=== PATIENT | male | born 1985 | race Hispanic/Latino ===

== ENCOUNTER 2020-12-10 18:28 | Inpatient (IN) | payer MEDICARE, MEDICAID ==
[2020-12-10] MEDS ORDERED: Morphine 4 MG/ML VIAL ONE ×2 (19:33→22:36)
[2020-12-10 19:52] LABS: ALT (SGPT) 21 U/L (8-55); AST (SGOT) 21 U/L (5-34); Alkaline Phosphatase 45 U/L (40-110); Anion Gap 20 mmol/L (10-20); BUN (Urea Nitrogen) 63 mg/dL (8.9-20.6); Bilirubin, Total 0.4 mg/dL (0.2-1.2); Calc. Creatinine Clearance 0 mL/min (70-130); Calcium 9.8 mg/dL (7.8-10.44); Carbon Dioxide 27 mmol/L (22-29); Chloride 100 mmol/L (98-107); Globulin 2.6 g/dL (2.4-3.5); Glucose 76 mg/dL (70-105); Protein, Total 6.6 g/dL (6.0-8.3); Sodium 142 mmol/L (136-145)
[2020-12-10 20:06] LABS: #Eosinphils 0.1 10x3/uL (0.0-0.5); #Monocytes 0.6 10x3/uL (0.0-1.1); %Basophils 0.5 % (0.0-2.0); %Eosinophils 2.5 % (0.0-6.0); %Lymphocytes 20.4 % (18.0-47.0); %Monocytes 15.3 % (0.0-10.0); Hemoglobin 12.8 g/dL (13.5-17.5); Mean Corpuscular HGB CONC 31.8 g/dL (32.0-36.0); Mean Corpuscular Hemoglobin 28.6 pg (27.0-33.0); Mean Platelet Volume 8.8 fl (7.4-10.4); RBC Distribution Width 15.3 % (11.5-14.5); Red Blood Cell (RBC) Count 4.48 10x6/uL (4.32-5.72); White Blood Cell (WBC) Count 3.7 10x3/uL (3.5-10.5)
[2020-12-10 20:07] LABS: Platelet Count 154 10x3/uL (150-450)
[2020-12-10] MEDS ORDERED: hydrALAZINE 20 MG/ML VIAL ONE (22:37)
[2020-12-10] MEDS ORDERED: Gentamicin 80 MG/100 ML BAG ONE (23:59)
[2020-12-11] MEDS ORDERED: Acetaminophen 325 MG TAB PO PRN (00:44)
[2020-12-11] MEDS ORDERED: HYDROcodone/Acetaminophen 5/325 mg Tablet PO PRN ×2 (00:44→12:43)
[2020-12-11] MEDS ORDERED: Calcium Carbonate 500 MG ChewTAB PO PRN (00:44)
[2020-12-11] MEDS ORDERED: Senokot S 8.6-50 MG TAB PO PRN (00:44)
[2020-12-11] MEDS ORDERED: Guaifenesin DM 100-10/5 ML UDCUP PO PRN (00:44)
[2020-12-11] MEDS ORDERED: HYDROmorphone 0.5 MG/0.5 ML SYRINGE SLOW IVP PRN (00:49)
[2020-12-11] MEDS ORDERED: Labetalol HCl 100 MG/20 ML VIAL SLOW IVP PRN (00:51)
[2020-12-11] MEDS ORDERED: Nitroglycerin 2% Ointment 1 INCH/1 GM Packet TOP SCH (01:00)
[2020-12-11] MEDS ORDERED: Nitroglycerin 2% Ointment 1 INCH/1 GM Packet ONE (03:01)
[2020-12-11] MEDS ORDERED: HYDROcodone/Acetaminophen 5/325 mg Tablet ONE (03:02)
[2020-12-11 06:01] LABS: #Eosinphils 0.1 10x3/uL (0.0-0.5); #Monocytes 0.5 10x3/uL (0.0-1.1); %Basophils 1.1 % (0.0-2.0); %Eosinophils 3.1 % (0.0-6.0); %Lymphocytes 19.7 % (18.0-47.0); %Monocytes 14.1 % (0.0-10.0); Hemoglobin 12.9 g/dL (13.5-17.5); Mean Corpuscular HGB CONC 32.1 g/dL (32.0-36.0); Mean Corpuscular Hemoglobin 29.5 pg (27.0-33.0); Mean Platelet Volume 8.6 fl (7.4-10.4); Platelet Count 133 10x3/uL (150-450); RBC Distribution Width 15.1 % (11.5-14.5); Red Blood Cell (RBC) Count 4.37 10x6/uL (4.32-5.72); White Blood Cell (WBC) Count 3.6 10x3/uL (3.5-10.5)
[2020-12-11 06:02] LABS: #Neutrophils 2.2 10x3/uL (1.5-8.4)
[2020-12-11 06:12] LABS: Anion Gap 20 mmol/L (10-20); BUN (Urea Nitrogen) 67 mg/dL (8.9-20.6); Calc. Creatinine Clearance 0 mL/min (70-130); Calcium 8.6 mg/dL (7.8-10.44); Carbon Dioxide 24 mmol/L (22-29); Chloride 102 mmol/L (98-107); Glucose 99 mg/dL (70-105); Potassium 6.2 mmol/L (3.5-5.1); Sodium 140 mmol/L (136-145)
[2020-12-11] MEDS ORDERED: Cefepime 1 GM in Sodium Chloride 0.9% 100 ML IVPB SCH (07:30)
[2020-12-11] MEDS ORDERED: HYDROcodone/Acetaminophen 10/325 mg Tablet ONE (08:00)
[2020-12-11] MEDS: Minoxidil 2.5 MG TAB PO SCH ×2 (08:59→21:20)
[2020-12-11] MEDS: Sevelamer Carbonate 800 MG TAB PO SCH ×3 (08:59→16:20)
[2020-12-11] MEDS: Hyoscyamine Sulfate SL 0.125 mg Tablet PO SCH ×3 (09:00→19:38)
[2020-12-11] MEDS ORDERED: Vancomycin 1 GM in Premix Bag 1 BAG IVPB SCH ×2 (09:00→10:45)
[2020-12-11] MEDS ORDERED: Metoprolol Tartrate 50 MG TAB ONE (09:43)
[2020-12-11] MEDS ORDERED: hydrALAZINE 25 MG TAB ONE (09:44)
[2020-12-11] MEDS ORDERED: HYDROmorphone 0.5 MG/0.5 ML SYRINGE ONE (09:44)
[2020-12-11] MEDS: Metoprolol Tartrate 50 MG TAB PO SCH ×2 (09:54→21:20)
[2020-12-11] MEDS: hydrALAZINE 25 MG TAB PO SCH ×3 (09:54→21:19)
[2020-12-11] MEDS ORDERED: HOLD VANCOMYCIN FOR LEVEL >20 FS SCH (10:45)
[2020-12-11] MEDS ORDERED: Vancomycin HCl 750 MG in Sodium Chloride 0.9% 250 ML 250 ML IVPB SCH ×2 (10:45→16:00)
[2020-12-11] MEDS ORDERED: Vancomycin HCl 500 MG in Sodium Chloride 0.9% 100 ML IVPB SCH (10:45)
[2020-12-11] MEDS ORDERED: Vancomycin HCl 1.25 GM in Sodium Chloride 0.9% 250 ML 250 ML IVPB SCH (10:45)
[2020-12-11] MEDS: hydrALAZINE 20 MG/ML VIAL SLOW IVP PRN (11:01)
[2020-12-11] MEDS: Heparin 5,000 UNITS/ML VIAL SC SCH ×3 (11:02→21:24)
[2020-12-11] MEDS: NIFEdipine XL 30 MG TAB PO SCH (11:02)
[2020-12-11 11:17] LABS: Vancomycin, Random 13.9 ug/mL (See Comment)
[2020-12-11] MEDS: Diazepam 5 MG TAB PO PRN ×2 (11:17→16:50)
[2020-12-11 13:12] LABS: SARS-CoV-2 PCR by NAA Not Detected (NotDetected)
[2020-12-11] MEDS ORDERED: Heparin 10,000 UNITS/ 10 ML VIAL SLOW IVP SCH (13:15)
[2020-12-11] MEDS: HYDROmorphone 0.5 MG/0.5 ML SYRINGE SLOW IVP PRN (15:48)
[2020-12-11] MEDS: Cefepime 0.5 GM in Sodium Chloride 0.9% 100 ML IVPB SCH (16:19)
[2020-12-11 17:36] VITALS: BMI 26.6
[2020-12-11] MEDS: diphenhydrAMINE 25 MG CAP PO PRN (17:54)
[2020-12-11] MEDS: Famotidine 20 MG TAB PO SCH (21:19)
[2020-12-11] MEDS: Senokot S 8.6-50 MG TAB PO SCH (21:20)
[2020-12-11] MEDS: HYDROcodone/Acetaminophen 10/325 mg Tablet PO PRN (21:46)
[2020-12-12] MEDS: HYDROcodone/Acetaminophen 10/325 mg Tablet PO PRN ×3 (01:38→21:28)
[2020-12-12] MEDS: diphenhydrAMINE 25 MG CAP PO PRN ×2 (01:39→13:30)
[2020-12-12] MEDS: Hyoscyamine Sulfate SL 0.125 mg Tablet PO SCH ×4 (01:57→19:47)
[2020-12-12] MEDS: HYDROmorphone 0.5 MG/0.5 ML SYRINGE SLOW IVP PRN ×2 (04:20→17:29)
[2020-12-12 07:26] LABS: Vancomycin, Random 13.6 ug/mL (See Comment)
[2020-12-12 07:27] LABS: Anion Gap 19 mmol/L (10-20); BUN (Urea Nitrogen) 47 mg/dL (8.9-20.6); Calc. Creatinine Clearance 11 mL/min (70-130); Calcium 8.6 mg/dL (7.8-10.44); Carbon Dioxide 25 mmol/L (22-29); Chloride 100 mmol/L (98-107); Glucose 77 mg/dL (70-105); Potassium 5.3 mmol/L (3.5-5.1); Sodium 139 mmol/L (136-145)
[2020-12-12 07:28] LABS: #Eosinphils 0.1 10x3/uL (0.0-0.5); #Monocytes 0.4 10x3/uL (0.0-1.1); #Neutrophils 2.1 10x3/uL (1.5-8.4); %Basophils 1.2 % (0.0-2.0); %Eosinophils 3.9 % (0.0-6.0); %Lymphocytes 19.3 % (18.0-47.0); %Monocytes 12.2 % (0.0-10.0); %Neutrophils 63.1 % (40.0-75.0); Hemoglobin 13.6 g/dL (13.5-17.5); Mean Corpuscular HGB CONC 31.3 g/dL (32.0-36.0); Mean Corpuscular Hemoglobin 28.6 pg (27.0-33.0); Mean Corpuscular Volume 91.2 fl (81.2-95.1); Mean Platelet Volume 8.9 fl (7.4-10.4); Platelet Count 135 10x3/uL (150-450); RBC Distribution Width 14.8 % (11.5-14.5); Red Blood Cell (RBC) Count 4.76 10x6/uL (4.32-5.72); White Blood Cell (WBC) Count 3.4 10x3/uL (3.5-10.5)
[2020-12-12] MEDS ORDERED: GUAIFENESIN SF SOLN 200 MG/10 ML UDCUP PO PRN (07:50)
[2020-12-12] MEDS ORDERED: Ondansetron PF 4 MG/2 ML Vial IVP PRN (07:50)
[2020-12-12] MEDS ORDERED: Zolpidem Tartrate 5 MG TAB PO PRN (07:50)
[2020-12-12] MEDS ORDERED: Cepastat Lozenges 1 LOZ PO PRN (07:50)
[2020-12-12] MEDS ORDERED: Benzonatate 100 MG CAP PO PRN (07:50)
[2020-12-12] MEDS ORDERED: Loperamide HCl 2 MG CAP PO PRN (07:50)
[2020-12-12] MEDS ORDERED: Sodium Chloride 0.65% Nasal 44 ML BOT EA NARE PRN (07:50)
[2020-12-12] MEDS ORDERED: Ondansetron ODT 4 MG TAB PO PRN (07:50)
[2020-12-12] MEDS ORDERED: Cefepime 0.5 GM in Sodium Chloride 0.9% 100 ML IVPB SCH (09:00)
[2020-12-12] MEDS: Sevelamer Carbonate 800 MG TAB PO SCH ×3 (09:03→17:30)
[2020-12-12] MEDS: hydrALAZINE 25 MG TAB PO SCH ×3 (09:04→21:21)
[2020-12-12] MEDS: Diazepam 5 MG TAB PO PRN ×2 (09:04→21:20)
[2020-12-12] MEDS: Metoprolol Tartrate 50 MG TAB PO SCH ×2 (09:04→21:21)
[2020-12-12] MEDS: Minoxidil 2.5 MG TAB PO SCH ×2 (09:04→21:58)
[2020-12-12] MEDS: NIFEdipine XL 30 MG TAB PO SCH (09:05)
[2020-12-12] MEDS: Senokot S 8.6-50 MG TAB PO SCH ×2 (09:05→21:21)
[2020-12-12] MEDS: Heparin 5,000 UNITS/ML VIAL SC SCH ×3 (09:05→21:22)
[2020-12-12] MEDS: Cefepime 0.5 GM in Sodium Chloride 0.9% 100 ML IVPB SCH (16:51)
[2020-12-12] MEDS ORDERED: Vancomycin HCl 750 MG in Sodium Chloride 0.9% 250 ML 250 ML IVPB SCH (17:00)
[2020-12-12] MEDS ORDERED: Sodium Chloride 0.9% 250 ML 250 ML ONE (18:32)
[2020-12-12] MEDS: Famotidine 20 MG TAB PO SCH (21:22)
[2020-12-13] MEDS: Hyoscyamine Sulfate SL 0.125 mg Tablet PO SCH ×4 (00:45→19:01)
[2020-12-13] MEDS: HYDROmorphone 0.5 MG/0.5 ML SYRINGE SLOW IVP PRN ×2 (05:37→17:57)
[2020-12-13] MEDS: diphenhydrAMINE 25 MG CAP PO PRN ×2 (05:49→12:59)
[2020-12-13 07:11] LABS: #Eosinphils 0.1 10x3/uL (0.0-0.5); #Monocytes 0.4 10x3/uL (0.0-1.1); %Lymphocytes 22.5 % (18.0-47.0); %Monocytes 13.4 % (0.0-10.0); Hemoglobin 13.7 g/dL (13.5-17.5); Mean Corpuscular HGB CONC 31.2 g/dL (32.0-36.0); Mean Corpuscular Hemoglobin 28.6 pg (27.0-33.0); Mean Corpuscular Volume 91.6 fl (81.2-95.1); Mean Platelet Volume 9.4 fl (7.4-10.4); Platelet Count 143 10x3/uL (150-450); RBC Distribution Width 14.6 % (11.5-14.5); Red Blood Cell (RBC) Count 4.79 10x6/uL (4.32-5.72)
[2020-12-13 07:19] LABS: #Neutrophils 1.8 10x3/uL (1.5-8.4); %Neutrophils 59.1 % (40.0-75.0)
[2020-12-13 07:36] LABS: ALT (SGPT) 20 U/L (8-55); AST (SGOT) 19 U/L (5-34); Albumin 3.7 g/dL (3.5-5.0); Alkaline Phosphatase 43 U/L (40-110); Anion Gap 21 mmol/L (10-20); BUN (Urea Nitrogen) 44 mg/dL (8.9-20.6); Bilirubin, Total 0.4 mg/dL (0.2-1.2); Calc. Creatinine Clearance 12 mL/min (70-130); Calcium 8.7 mg/dL (7.8-10.44); Carbon Dioxide 25 mmol/L (22-29); Chloride 97 mmol/L (98-107); Globulin 2.6 g/dL (2.4-3.5); Glucose 77 mg/dL (70-105); Potassium 4.7 mmol/L (3.5-5.1); Protein, Total 6.3 g/dL (6.0-8.3); Sodium 138 mmol/L (136-145)
[2020-12-13] MEDS: Minoxidil 2.5 MG TAB PO SCH ×2 (09:36→21:11)
[2020-12-13] MEDS: Diazepam 5 MG TAB PO PRN ×2 (09:36→21:05)
[2020-12-13] MEDS: Sevelamer Carbonate 800 MG TAB PO SCH ×3 (09:36→16:59)
[2020-12-13] MEDS: Heparin 5,000 UNITS/ML VIAL SC SCH ×3 (09:37→21:06)
[2020-12-13] MEDS: hydrALAZINE 25 MG TAB PO SCH ×3 (09:37→21:05)
[2020-12-13] MEDS: NIFEdipine XL 30 MG TAB PO SCH (09:38)
[2020-12-13] MEDS: Senokot S 8.6-50 MG TAB PO SCH ×2 (09:38→21:04)
[2020-12-13] MEDS: Metoprolol Tartrate 50 MG TAB PO SCH ×2 (09:38→21:04)
[2020-12-13] MEDS: HYDROcodone/Acetaminophen 10/325 mg Tablet PO PRN ×2 (12:48→21:04)
[2020-12-13] MEDS: hydrALAZINE 20 MG/ML VIAL SLOW IVP PRN (14:21)
[2020-12-13] MEDS ORDERED: Hydrochlorothiazide 25 MG TAB PO SCH (16:45)
[2020-12-13] MEDS: Cefepime 0.5 GM in Sodium Chloride 0.9% 100 ML IVPB SCH (16:51)
[2020-12-13] MEDS: Famotidine 20 MG TAB PO SCH (21:05)
[2020-12-14] MEDS: Hyoscyamine Sulfate SL 0.125 mg Tablet PO SCH ×3 (02:40→09:02)
[2020-12-14] MEDS: HYDROmorphone 0.5 MG/0.5 ML SYRINGE SLOW IVP PRN (06:04)
[2020-12-14] MEDS: hydrALAZINE 20 MG/ML VIAL SLOW IVP PRN (06:10)
[2020-12-14] MEDS: Diazepam 5 MG TAB PO PRN (08:59)
[2020-12-14] MEDS: NIFEdipine XL 30 MG TAB PO SCH ×2 (09:00→09:09)
[2020-12-14] MEDS: Sevelamer Carbonate 800 MG TAB PO SCH ×2 (09:00→12:27)
[2020-12-14] MEDS: hydrALAZINE 25 MG TAB PO SCH (09:01)
[2020-12-14] MEDS: Metoprolol Tartrate 50 MG TAB PO SCH (09:01)
[2020-12-14] MEDS: Minoxidil 2.5 MG TAB PO SCH (09:01)
[2020-12-14] MEDS: Senokot S 8.6-50 MG TAB PO SCH (09:01)
[2020-12-14] MEDS: Heparin 5,000 UNITS/ML VIAL SC SCH (09:09)
[2020-12-14] MEDS: HYDROcodone/Acetaminophen 10/325 mg Tablet PO PRN (10:11)
[2020-12-14 13:14] VITALS: BP 159/82; TEMP 98.2
== END 2020-12-14 13:15 | disposition home or self-care (01) | DRG 682 ==
LOC: CSHERS 18:28 → CSHERHOLD 12-11 03:26 → CSHTELE 12-11 11:09
PROVIDERS: ADMIT Emergency Medicine; ATTEND Family Medicine
PROC: 5A1D70Z Performance of Urinary Filtration, Intermittent, Less than 6 Hours Per Day (ICD-10-PCS; principal; 2020-12-12)
DX: I12.0 Hypertensive chronic kidney disease with stage 5 chronic kidney disease or end stage renal disease (principal); N18.6 End stage renal disease; R18.8 Other ascites; Q61.3 Polycystic kidney, unspecified; Z99.2 Dependence on renal dialysis; N50.89 Other specified disorders of the male genital organs; F12.10 Cannabis abuse, uncomplicated; Z87.898 Personal history of other specified conditions; F41.9 Anxiety disorder, unspecified; G89.29 Other chronic pain; E87.5 Hyperkalemia; Z20.822 Contact with and (suspected) exposure to COVID-19
CPT/HCPCS: 36415; 36416; 76870; 80048; 80053; 80202; 83605; 85025; 86140; 87040; 87635; 90935; 93005; 93306; 93923; 93976; 96365; 96367; 96375; 96376; G0257; J0360; J0692; J1170; J1580; J1644; J2270; J3370; J3490; J7050; Q0163; U0003; U0005

== ENCOUNTER 2021-02-02 13:03 | Emergency (ER) | payer MEDICARE, MEDICAID ==
[2021-02-02] MEDS ORDERED: Morphine 4 MG/ML VIAL ONE (14:04)
[2021-02-02 14:15] LABS: #Eosinphils 0.1 10x3/uL (0.0-0.5); #Monocytes 0.4 10x3/uL (0.0-1.1); %Basophils 0.7 % (0.0-2.0); %Eosinophils 3.3 % (0.0-6.0); %Neutrophils 70.5 % (40.0-75.0); Hemoglobin 9.8 g/dL (13.5-17.5); Mean Corpuscular HGB CONC 31.7 g/dL (32.0-36.0); Mean Corpuscular Hemoglobin 28.5 pg (27.0-33.0); Mean Corpuscular Volume 89.8 fl (81.2-95.1); Mean Platelet Volume 9.5 fl (7.4-10.4); Platelet Count 207 10x3/uL (150-450); RBC Distribution Width 18.1 % (11.5-14.5); Red Blood Cell (RBC) Count 3.44 10x6/uL (4.32-5.72); White Blood Cell (WBC) Count 4.2 10x3/uL (3.5-10.5)
[2021-02-02 14:31] LABS: ALT (SGPT) 22 U/L (8-55); AST (SGOT) 20 U/L (5-34); Albumin 4.1 g/dL (3.5-5.0); Alkaline Phosphatase 55 U/L (40-110); Anion Gap 19 mmol/L (10-20); BUN (Urea Nitrogen) 63 mg/dL (8.9-20.6); Bilirubin, Total 0.7 mg/dL (0.2-1.2); Calc. Creatinine Clearance 0 mL/min (70-130); Calcium 10.1 mg/dL (7.8-10.44); Carbon Dioxide 29 mmol/L (22-29); Chloride 101 mmol/L (98-107); Globulin 2.5 g/dL (2.4-3.5); Glucose 79 mg/dL (70-105); Potassium 4.7 mmol/L (3.5-5.1); Protein, Total 6.6 g/dL (6.0-8.3); Sodium 144 mmol/L (136-145)
[2021-02-02 14:48] LABS: CKMB 2.5 ng/mL (0-6.6)
== END 2021-02-02 16:47 | disposition home or self-care (01) ==
LOC: CSHERS 13:03
DX: I12.0 Hypertensive chronic kidney disease with stage 5 chronic kidney disease or end stage renal disease (principal); N18.6 End stage renal disease; D63.1 Anemia in chronic kidney disease; Z99.2 Dependence on renal dialysis; Z79.899 Other long term (current) drug therapy
CPT/HCPCS: 71045; 74177; 80053; 82553; 83880; 84484; 85025; 93005; 96374; J2270

== ENCOUNTER 2025-06-17 16:03 | Emergency (ER) | payer MEDICARE, MEDICAID ==
[2025-06-17] MEDS ORDERED: HYDROmorphone 0.5 MG/0.5 ML SYRINGE ONE ×2 (17:31→19:20)
[2025-06-17 17:35] LABS: #Basophils Less than 0.03 10x3/uL (0.0-0.2); #Eosinophils 0.07 10x3/uL (0.0-0.5); #Monocytes 0.30 10x3/uL (0.0-1.1); #Neutrophils 1.36 10x3/uL (1.5-8.4); %Basophils 0.5 % (0.0-2.0); %Eosinophils 3.2 % (0.0-6.0); %Lymphocytes 20.1 % (18.0-47.0); %Monocytes 13.7 % (0.0-10.0); %Neutrophils 62.0 % (40.0-75.0); Hematocrit 17.5 % (38.8-50.0); Hemoglobin 5.6 g/dL (13.5-17.5); Mean Corpuscular Hemoglobin 29.8 pg (27.0-33.0); Mean Corpuscular Volume 93.1 fL (81.2-95.1); Platelet Count 130 10x3/uL (150-450); Red Blood Cell (RBC) Count 1.88 10x6/uL (4.32-5.72); White Blood Cell (WBC) Count 2.19 10x3/uL (3.5-10.5)
[2025-06-17] MEDS ORDERED: Pantoprazole 40 MG VIAL ONE (17:50)
[2025-06-17 17:58] LABS: Anion Gap 20 mmol/L (10-20); BUN (Urea Nitrogen) 69 mg/dL (8.9-20.6); Calcium 9.5 mg/dL (7.8-10.44); Carbon Dioxide 30 mmol/L (22-29); Chloride 99 mmol/L (98-107); Glucose 117 mg/dL (70-105); Magnesium 2.5 mg/dL (1.6-2.6); Sodium 143 mmol/L (136-145)
[2025-06-17] MEDS ORDERED: Pantoprazole 80 MG, Admixture Fee 1 EACH in Sodium Chloride 0.9% 100 ML IVPB SCH (18:00)
[2025-06-17 18:03] LABS: Troponin I 0.081 ng/mL (< 0.028)
[2025-06-17 18:09] LABS: Potassium 6.2 mmol/L (3.5-5.1)
[2025-06-17 18:17] LABS: ALT (SGPT) 13 U/L (Less than 45); AST (SGOT) 17 U/L (11-34); Albumin 4.0 g/dL (3.1-4.5); Alkaline Phosphatase 53 U/L (40-110); Bilirubin, Total 0.5 mg/dL (0.3-1.2); Calc. Creatinine Clearance 0 mL/min (70-130); Globulin 2.8 g/dL (2.4-3.5); Lipase 58 U/L (8-78)
[2025-06-17] MEDS ORDERED: Dextrose 50% Abboject 50 ML SYRINGE ONE (18:32)
[2025-06-17] MEDS ORDERED: LOKELMA 10 GM PACKET PO SCH (18:45)
[2025-06-17] MEDS ORDERED: Calcium Gluc 4.6 MEQ/10 ML (100 MG/ML) ONE (19:18)
[2025-06-17] MEDS ORDERED: Albuterol 2.5 MG (3 mL) NEB ONE (19:29)
== END 2025-06-17 20:37 | disposition short-term general hospital (02) ==
LOC: CSHERS 16:03
DX: E87.5 Hyperkalemia (principal); D64.9 Anemia, unspecified; K92.2 Gastrointestinal hemorrhage, unspecified; I13.0 Hypertensive heart and chronic kidney disease with heart failure and stage 1 through stage 4 chronic kidney disease, or unspecified chronic kidney disease; N18.9 Chronic kidney disease, unspecified; I50.9 Heart failure, unspecified; N17.9 Acute kidney failure, unspecified; Q61.3 Polycystic kidney, unspecified; F41.9 Anxiety disorder, unspecified; Z55.6 Problems related to health literacy; Z99.2 Dependence on renal dialysis; Z90.5 Acquired absence of kidney
CPT/HCPCS: 36415; 36430; 71250; 74177; 80053; 83605; 83690; 83735; 83880; 84484; 85025; 86850; 86900; 86901; 93005; J0612; J1171; J1815; J2470; J7611; J7999